=== PATIENT | male | born 1945 | race Caucasian/White ===

== ENCOUNTER 2016-07-24 06:26 | Emergency (ER) | payer OTHER ==
[~2016-07-24] VITALS: Ht 167.6 cm; Wt 68.0 kg
--- NOTE | ~2016-07-24 | EKG ---
[place], [place] ELECTROCARDIOGRAM REPORT NAME: GERALDINE CAMPOS UNIT #: [id number] ROOM: DOCTOR: MARIA HARRIS MD BIRTHDATE: [birth year] DOS: 07/24/2016 TIME: 0705 hours. FINDINGS: 1. Sinus bradycardia at rate of 56. 2. Possible recent anteroseptal myocardial infarction. 3. Abnormal electrocardiogram. MARIA HARRIS MD CM:EKGRPT:ELECTROCARDIOGRAM REPORT [id number] MARIA HARRIS MD
[~2016-07-24 06:26] MED LIST: DAYPRO600 M1 PO; OCUFLOX 0.3% 5 M5 ML OPH
[2016-07-24] MEDS ORDERED: NORVASC5 MG PO (06:38)
[2016-07-24] MEDS ORDERED: METOPROLOL SUCC50 M2 PO (06:38)
[2016-07-24] MEDS ORDERED: NOVOLIN 70100 UNIT/1 SQ (06:39)
[2016-07-24 07:09] LABS: BASO % 0.6 % (0.0-1.0); EOS # 0.1 10*3/uL (0.0-0.4); EOS % 1.6 % (1.0-4.0); HEMATOCRIT 41.6 % (42.0-52.0); HEMOGLOBIN 14.5 g/dl (14.0-18.0); LYMPH # 1.5 10*3/uL (1.3-4.4); LYMPH % 21.5 % (27.0-41.0); MEAN CORPUSCULAR HGB CONC 34.9 g/dl (33.0-37.0); MEAN PLATELET VOLUME 9.9 fl (9.6-12.3); MONO # 0.6 10*3/uL (0.1-1.0); MONO % 9.2 % (3.0-9.0); NEUT # 4.7 10*3/uL (2.3-7.9); NEUT % 66.8 % (47.0-73.0); PLATELET COUNT AUTOMATED 188 10*3/uL (130-400); RED BLOOD COUNT 4.84 10*6/uL (4.50-5.90); RED CELL DISTRI WIDTH 13.8 % (0-14.5)
[2016-07-24 07:22] LABS: PROTHROMBIN TIME 10.2 SECONDS (9.0-12.4)
[2016-07-24 07:25] LABS: ALBUMIN 3.4 gm/dl (3.1-4.5); ALKALINE PHOSPHATASE 102 U/L (45-117); BILIRUBIN, TOTAL 0.6 mg/dl (0.2-1.0); BUN 20 mg/dl (7-24); CARBON DIOXIDE 26 mmol/L (21-32); CHLORIDE 108 mmol/L (98-107); EST GLOM FILT AFRICAN AMERICAN 50 ml/min; GLUCOSE 87 mg/dL (65-99); MAGNESIUM 2.1 mg/dL (1.5-2.1); POTASSIUM 3.9 mmol/L (3.5-5.1); SGOT/AST 26 IU/L (3-35); SGPT/ALT 18 U/L (12-78); SODIUM 141 mmol/L (136-145); TOTAL PROTEIN 6.7 gm/dL (6.4-8.2)
[2016-07-24 07:26] LABS: TROPONIN I < 0.015 ng/ml (<0.045)
== END 2016-07-24 07:50 | disposition home or self-care (01) ==
LOC: ED 06:26
PROVIDERS: Emergency Medicine Emergency Medical Services
DX: R29.5 Transient paralysis (principal); E11.9 Type 2 diabetes mellitus without complications; Z79.899 Other long term (current) drug therapy

== ENCOUNTER → 2017-10-15 | Outpatient (CLI) | payer OTHER ==
[~2017-10-15] MED LIST changes: +METOPROLOL SUCC50 M2 PO; +NORVASC5 MG PO; +NOVOLIN 70100 UNIT/1 SQ
== END | disposition home or self-care (01) ==
LOC: US 07:12
DX: N28.9 Disorder of kidney and ureter, unspecified (principal); I10 Essential (primary) hypertension

== ENCOUNTER → 2021-04-01 | Outpatient (CLI) | payer OTHER | END | disposition home or self-care (01) | LOC: COVID19 16:01 | PROVIDERS: ATTEND Internal Medicine | DX: U07.1 COVID-19 (principal) ==

== ENCOUNTER 2021-06-27 09:25 | Emergency (ER) | payer OTHER ==
[~2021-06-27] VITALS: Wt 77.1 kg
== END 2021-06-27 11:10 | disposition home or self-care (01) ==
LOC: ED 09:25
DX: S00.81XA Abrasion of other part of head, initial encounter (principal); S09.90XA Unspecified injury of head, initial encounter; Z91.012 Allergy to eggs; Z88.6 Allergy status to analgesic agent; Z79.899 Other long term (current) drug therapy; Z98.890 Other specified postprocedural states; V43.52XA Car driver injured in collision with other type car in traffic accident, initial encounter; Y93.89 Activity, other specified; Y92.89 Other specified places as the place of occurrence of the external cause; Y99.8 Other external cause status